=== PATIENT | male | born 1985 | race Two or more races ===

== ENCOUNTER 2019-06-20 09:48 | Emergency (ER) | payer MEDICAID ==
[~2019-06-20] VITALS: Ht 190.5 cm; Wt 127.0 kg
[2019-06-20] MEDS ORDERED: ONDANSETRON 4MG ODT PO ONE (10:45)
[2019-06-20] MEDS ORDERED: IBUPROFEN 800MG TABLET PO ONE (10:45)
[2019-06-20] MEDS ORDERED: MECLIZINE 25MG TABLET PO ONE (10:45)
[2019-06-20 11:57] LABS: BASOPHILS % 0.6 % (0.0-2.0); EOSINOPHILS % 0.2 % (0.0-5.0); HEMATOCRIT. 49.1 % (42.0-52.0); HEMOGLOBIN. 16.9 g/dL (14.0-18.0); LYMPHOCYTES % 27.7 % (20.0-50.0); MEAN CORPUSCULAR HEMOGLOBIN 29.9 pg (28.0-32.0); MEAN PLATELET VOLUME 9.3 fl (7.4-10.4); MONOCYTES % 6.5 % (2.0-8.0); PLATELET 170 x1000/uL (130-400); RED BLOOD CELL COUNT 5.64 mill/uL (4.7-6.1); RED CELL DISTRIBUTION WIDTH 12.9 % (11.6-14.6)
[2019-06-20 12:08] LABS: CHLORIDE 105 mEq/L (98-107)
[2019-06-20 13:11] VITALS: BP 139/88
== END 2019-06-20 13:14 | disposition home or self-care (01) ==
LOC: ER 10:07
DX: R42 Dizziness and giddiness (principal); R51 Headache; E11.9 Type 2 diabetes mellitus without complications; I10 Essential (primary) hypertension
CPT/HCPCS: 36415; 70450; 80053; 84443; 84484; 85025; 85651; 93005; 99284; J8597; Q0162; Z7610